=== PATIENT | male | born 1955 | race Caucasian/White ===

== ENCOUNTER 2021-01-05 02:05 | Emergency (ER) | payer MEDICARE, OTHER ==
[~2021-01-05] VITALS: Ht 180.3 cm; Wt 72.6 kg
--- NOTE | 2021-01-05 02:10 | NUR ---
Patient BIB [id number] from home for c/o urinary retention x12hrs.
[2021-01-05] MEDS ORDERED: MORPHINE SULFATE 4 MG/1 ML DISP.SYRIN IM ONE (02:15)
[2021-01-05] MEDS ORDERED: MORPHINE SULFATE 4 MG/1 ML DISP.SYRIN ONE (02:16)
[2021-01-05] MEDS ORDERED: CEPH500C2 PO (02:30)
[2021-01-05 03:01] LABS: *BILIRUBIN,URIN NEGATIVE (NEGATIVE); *BLOOD, URINE NEGATIVE (NEGATIVE); *CLARITY,URINE CLEAR (CLEAR); *COLOR,URINE YELLOW (YELLOW); *KETONES,URINE NEGATIVE (NEGATIVE); *UROBILINOGEN,URINE 0.2 E.U./dl (NORMAL); LEUKOCYTE ESTERASE ,URINE NEGATIVE (NEGATIVE); NITRITE, URINE NEGATIVE (NEGATIVE); UGLUCOSE NEGATIVE (NEGATIVE)
--- NOTE | 2021-01-05 03:01 | NUR ---
Patient is resting on bed, no acute distress. States feeling a lot of relief from castaneda catheter.
--- NOTE | 2021-01-05 03:50 | NUR ---
Called [facility] to arrange taxi transportation for patient. [id number] estimated 15-20 minute ETA to cook pickled meat patient to transport to his home.
[2021-01-05 04:20] VITALS: BP 146/109
--- NOTE | 2021-01-05 04:20 | NUR ---
Patient discharged to home in stable condition. Written and verbal after care instructions given. Patient verbalizes understanding of instructions. Stressed follow up or return to ER for worsening s/s. Patient ambulates without difficulty, given Rx, left with all belongings. Instructed to not drive, went home via [employer].
== END 2021-01-05 04:20 | disposition home or self-care (01) ==
LOC: ER 02:08
DX: N40.1 Benign prostatic hyperplasia with lower urinary tract symptoms (principal); R33.8 Other retention of urine; R03.0 Elevated blood-pressure reading, without diagnosis of hypertension
CPT/HCPCS: 51702; 81003; 87086; 96372; 99284; J2270; A4663